=== PATIENT | male | born 1985 | race Caucasian/White ===

== ENCOUNTER 2019-07-29 01:06 | Emergency (ER) | payer OTHER ==
[~2019-07-29] VITALS: Ht 190.5 cm; Wt 121.1 kg
[2019-07-29 01:36] LABS: ABSOLUTE BASOPHILS 0.1 thou/uL (0.0-0.2); ABSOLUTE EOSINOPHILS 0.5 thou/uL (0.0-0.7); ABSOLUTE LYMPHOCYTES 2.7 thou/uL (0.8-5.3); ABSOLUTE MONOCYTES 0.8 thou/uL (0.0-1.2); ABSOLUTE NEUTROPHILS 5.2 thou/uL (1.6-8.1); BASOPHILS 0.9 %; EOSINOPHILS 5.4 %; HEMATOCRIT 45.5 % (42.0-52.0); HEMOGLOBIN 15.8 gm/dL (14.0-18.0); LYMPHOCYTES 29.4 %; MCH 30.5 pg (26.0-34.0); MCHC 34.8 g/dL (28.0-37.0); MCV 87.6 fL (80.0-100.0); MONOCYTES 8.4 %; MPV 7.9 fl. (7.2-11.1); NUCLEATED RBCS 0 /100WBC; PLATELET COUNT* 274 thou/uL (150-400); POLYS 55.9 %; RDW-CV 13.1 % (10.5-14.5); WBC 9.2 thou/uL (4.0-11.0)
[2019-07-29 02:16] LABS: CALCIUM 8.6 mg/dL (8.5-10.1); CREATININE 1.1 mg/dL (0.6-1.3); POTASSIUM 3.6 mmol/L (3.5-5.1)
[2019-07-29 04:10] LABS: URINE BILIRUBIN NEGATIVE (Negative); URINE BLOOD 3+ (Negative); URINE CLARITY CLEAR; URINE COLOR YELLOW; URINE GLUCOSE-RANDOM NEGATIVE (Negative); URINE KETONES NEGATIVE (Negative); URINE LEUKOCYTES-REFLEX NEGATIVE (Negative); URINE NITRITE-REFLEX NEGATIVE (Negative); URINE PROTEIN NEGATIVE (Negative); URINE SPECIFIC GRAVITY 1.025 (1.005-1.030); URINE UROBILINOGEN 0.2 E.U./dl (0.2-1.0)
[2019-07-29] MEDS ORDERED: HYDROCODON-ACE1 EAC8 PO (04:33)
[2019-07-29 04:41] VITALS: BP 147/87
[2019-07-29 04:47] LABS: CRYSTALS None Seen /LPF (None Seen); HYALINE CASTS 0-3 Few /LPF (None Seen); MUCUS >6 Heavy strn/LPF (None Seen); SQUAMOUS 0-3 Few /LPF (0-3); URINE WBC-REFLEX None Seen /HPF (0-5)
== END 2019-07-29 04:42 | disposition home or self-care (01) ==
LOC: M.ERS 01:06
PROVIDERS: Emergency Medicine
DX: N23 Unspecified renal colic (principal); R42 Dizziness and giddiness; R11.2 Nausea with vomiting, unspecified; Z91.018 Allergy to other foods

== ENCOUNTER 2019-08-24 10:45 | Emergency (ER) | payer OTHER ==
[~2019-08-24] VITALS: Ht 185.4 cm; Wt 120.2 kg
[~2019-08-24 10:45] MED LIST: HYDROCODON-ACE1 EAC8 PO
[2019-08-24 11:16] LABS: URINE BILIRUBIN NEGATIVE (Negative); URINE BLOOD 2+ (Negative); URINE CLARITY CLEAR; URINE COLOR ORANGE; URINE GLUCOSE-RANDOM 2+ (Negative); URINE KETONES 1+ (Negative); URINE LEUKOCYTES-REFLEX 1+ (Negative); URINE PROTEIN 3+ (Negative); URINE UROBILINOGEN >= 8.0 E.U./dl (0.2-1.0)
[2019-08-24 11:18] LABS: URINE NITRITE-REFLEX POSITIVE (Negative)
[2019-08-24 11:27] LABS: BACTERIA-REFLEX 1-9 Few /HPF (None Seen); CASTS None Seen /LPF (None Seen); CRYSTALS None Seen /LPF (None Seen); SQUAMOUS 0-3 Few /LPF (0-3); URINE RBC 0-2 Rare /HPF (0-2); URINE WBC-REFLEX 0-5 Rare /HPF (0-5)
[2019-08-24 11:28] LABS: ABSOLUTE BASOPHILS 0.1 thou/uL (0.0-0.2); ABSOLUTE EOSINOPHILS 0.3 thou/uL (0.0-0.7); ABSOLUTE LYMPHOCYTES 2.6 thou/uL (0.8-5.3); ABSOLUTE MONOCYTES 0.7 thou/uL (0.0-1.2); ABSOLUTE NEUTROPHILS 6.5 thou/uL (1.6-8.1); BASOPHILS 0.9 %; EOSINOPHILS 2.9 %; HEMATOCRIT 44.1 % (42.0-52.0); HEMOGLOBIN 15.4 gm/dL (14.0-18.0); LYMPHOCYTES 25.4 %; MCH 30.5 pg (26.0-34.0); MCHC 34.8 g/dL (28.0-37.0); MCV 87.4 fL (80.0-100.0); MONOCYTES 6.7 %; MPV 8.3 fl. (7.2-11.1); NUCLEATED RBCS 0 /100WBC; PLATELET COUNT* 347 thou/uL (150-400); POLYS 64.1 %; RBC 5.04 mil/uL (4.50-6.00); RDW-CV 13.2 % (10.5-14.5); WBC 10.2 thou/uL (4.0-11.0)
[2019-08-24 11:33] LABS: CALCIUM 8.5 mg/dL (8.5-10.1); CREATININE 1.5 mg/dL (0.6-1.3); POTASSIUM 3.8 mmol/L (3.5-5.1)
[2019-08-24 11:37] LABS: TOTAL PROTEIN 7.2 g/dL (6.4-8.2)
[2019-08-24] MEDS ORDERED: CIPRO500 MG PO (12:47)
[2019-08-24] MEDS ORDERED: FLOMAX0.4 MG PO (12:47)
[2019-08-24] MEDS ORDERED: ONDANSETRON ODT4 MG PO (12:47)
[2019-08-24] MEDS ORDERED: NORCO 5-325 TA1 EAC1 PO (12:47)
[2019-08-24 13:22] VITALS: BP 130/77
== END 2019-08-24 13:24 | disposition home or self-care (01) ==
LOC: M.ERS 10:45
PROVIDERS: Physician Assistant
DX: N20.0 Calculus of kidney (principal); N39.0 Urinary tract infection, site not specified; R11.2 Nausea with vomiting, unspecified; Z91.018 Allergy to other foods